=== PATIENT | female | born 1985 | race Caucasian/White ===

== ENCOUNTER 2024-01-16 21:17 | Emergency (ER) | payer OTHER, SELFPAY ==
--- NOTE | ~2024-01-16 | CT_ITS ---
EXAMINATION: CT soft tissue neck w con DATE: 01/16/2024 23:08 INDICATION: Left lower posterior dental abscess, facial swelling. TECHNIQUE: Computed tomography (CT) of the neck was performed with 75 mL Omnipaque-350 intravenous co ntrast. Automated exposure control and iterative reconstruction technique were employed. The dose-gillian gth product was 571.80 mGy-cm. COMPARISON: None FINDINGS: Soft tissue swelling adjacent to the left mandible without focal rim enhancing fluid collection. Mult ifocal dental caries. Multiple absent teeth. Periapical lucencies adjacent to the roots of multiple r ight-sided mandibular molars and the posterior most left maxillary molar. No evidence of maxillary or mandibular cortical breakthrough. The thyroid gland is unremarkable. The submandibular and paroti d glands are symmetric. Multiple enlarged left submandibular lymph nodes. The superior mediastinum is unremarkable. The airway is unremarkable. Parapharyngeal and pre-glottic fat planes are prese rved. Normal enhancing neck vessels. The orbits are unremarkable. Visualized sinuses and mastoid air cells are well aerated. Lung apices are clear. Normal regional bones. IMPRESSION: Soft tissue swelling over the left mandible. No abscess. No definite CT evidence of odontogenic infec tion. Submandibular lymphadenopathy. Multifocal periodontal disease. Multifocal dental caries. Reviewed, dictated and finalized at location [facility]. IMPRESSION: Soft tissue swelling over the left mandible. No abscess. No definite CT evidenc e of odontogenic infection. Submandibular lymphadenopathy. Multifocal periodontal disease. Multifocal dental caries.
[2024-01-16 21:17] VITALS: BP 134/74; PULSE 84; RESP 20; TEMP 36.3; O2SAT 98
--- NOTE | 2024-01-16 22:10 | ED.GENADULT ---
HPI - General Adult General Chief complaint: Dental/Oral Stated complaint: Facial Abscess Time Seen by Provider: 01/16/24 21:46 History of Present Illness HPI narrative: The patient is a 38-year-old woman who has had poor dentition and problems with the left lower posterior molar for more than a year. She has had several teeth extracted. More recently, 5 days ago, on 01/11/2024, the patient started to have pain in the left lower posterior molar tooth with initially mild swelling of the left jaw. She was seen in the emergency room the next day, 01/12/2024, at [facility], and was placed on amoxicillin b.i.d.. She has taken those antibiotics but still has pain in the left lower posterior molar but now has swelling that has worsened in the left face, with erythema in the left jaw inferiorly, for the last 2 days, since 01/14/2024. She has taken ibuprofen and Tylenol but with no relief of the pain. The swelling is worse and so has the erythema and pain. She does have dental follow-up scheduled for the next few weeks but she does not know the exact date. She also complains of feeling warm, with chills and diaphoresis. No chest pain or abdominal pain. No urinary symptoms. No rhinorrhea or nasal congestion. No significant past medical history. She does smoke cigarettes. She denies methamphetamine use. Last menstrual period 5 days ago. Related Data Home Medications Medication Instructions Recorded Confirmed amoxicillin 500 mg capsule 500 mg PO BID 01/16/24 01/16/24 Allergies Allergy/AdvReac Type Severity Reaction Status Date / Time No Known Allergies Allergy Verified 01/16/24 22:23 Review of Systems Review of Systems: All systems reviewed & are unremarkable except as noted in HPI and below Constitutional: Constitutional: Reports chills, Reports excessive sweating, Denies fatigue, Reports fever(s) (feels warm), Reports headache(s) (at left jaw area) and Denies weakness Eyes: Eyes: Denies change in vision and Denies photophobia ENT: Denies dysphagia, Denies dizziness, Denies headache(s), Denies lip swelling, Denies nasal congestion, Denies sore throat and Denies tongue swelling Comments: facial swelling on the left with erythema of the skin of the left jaw. Dental pain present. Cardiovascular: Cardiovascular: Denies chest pain, Denies syncope, Denies rapid heart rate and Denies dyspnea Respiratory: Respiratory: Denies cough, Denies dyspnea and Denies wheezing Gastrointestinal: Gastrointestinal: Denies abdominal pain, Denies constipation, Denies dysphagia, Denies diarrhea, Denies nausea and Denies vomiting Genitourinary: Genitourinary: Denies hematuria, Denies urinary frequency, Denies dysuria and Denies urinary urgency Musculoskeletal: Musculoskeletal: Denies back pain, Denies myalgias, Denies arthralgias, Denies joint swelling and Denies numbness Integumentary/Breasts: Skin/Breast: Denies pruritus, Reports erythema (at the left jaw) and Denies rash Neurologic: Denies confusion, Denies dizziness, Denies syncope, Denies headache(s), Denies focal weakness, Denies numbness and Denies weakness Psychiatric: Psychiatric: Denies anxiety and Denies confusion Endocrine: Endocrine: Denies excessive sweating and Denies fatigue Hematologic/Lymphatic: Hematologic/Lymphatic: Denies easy bleeding and Denies easy bruising Allergic/Immunologic: Allergic/Immunologic: Denies lip swelling, Denies tongue swelling and Denies wheezing Exam Const: General: healthy appearing, no acute distress, alert and well nourished Nutritional Appearance: well nourished Orientation/consciousness: patient oriented x3 Limitations: no limitations HENMT: Head: normal to inspection Ears: external ears normal Face/Nose/Sinus: normal facial exam Face and sinus: normal facial exam Mouth: Yes moist mucous membranes Teeth and gingiva: abnormal tooth and associated gingiva (significant dental caries, multiple pulled teeth,multiple melted-terrence
[2024-01-16 22:13] LABS: Basophils Absolute Auto 0.03 K/mm3 (0.00-0.10); Basophils Percent Auto 0.3 % (0.0-1.0); Eosinophils Absolute Auto 0.15 K/mm3 (0.02-0.50); Eosinophils Percent Auto 1.5 % (1.0-6.0); Hematocrit 37.2 % (35.0-49.0); Hemoglobin 12.4 g/dL (12.0-15.0); Immature Granulocyte Absolute 0.05 K/mm3 (0.00-0.00); Immature Granulocyte Percent A 0.5 % (0.0-0.0); Lymphocytes Absolute Auto 1.84 K/mm3 (1.10-4.50); Lymphocytes Percent Auto 18.8 % (18.0-42.0); Mean Corpuscular HGB Conc 33.3 g/dL (32-36); Mean Corpuscular Hemoglobin 30.8 pg (27.0-31.0); Mean Corpuscular Volume 92.5 fL (78.0-102.0); Mean Platelet Volume 11.4 fl (9.2-11.8); Monocytes Absolute Auto 0.59 K/mm3 (0.10-0.90); Neutrophils Absolute Auto 7.12 K/mm3 (1.70-7.20); Neutrophils Percent Auto 72.9 % (50.0-70.0); Platelet Count Result 197 K/mm3 (150-420); Red Blood Count 4.02 M/mm3 (4.20-5.40); Red Cell Distribution Width 13.3 % (11.6-14.4); White Blood Count 9.8 K/mm3 (4.8-10.8)
[2024-01-16 22:29] LABS: Alanine Aminotransferase 23 U/L (14-59); Albumin Level 3.2 g/dL (3.4-5.0); Alkaline Phosphatase 87 U/L (46-116); Anion Gap 11 mmol/L (4-12); Aspartate Amino Transferase 23 U/L (15-37); Bilirubin,Total 0.3 mg/dL (0.00-1.00); Blood Urea Nitrogen 9 mg/dL (7-18); Calcium 8.5 mg/dL (8.5-10.1); Carbon Dioxide 26 mmol/L (21-32); Chloride 101 mmol/L (98-108); Estimated Glomerular Filt Rate > 60; Glucose 107 mg/dL (70-99); Osmolality Calculated 284 mOsm/kg (285-295); Potassium 3.3 mmol/L (3.5-5.1); Sodium 138 mmol/L (136-145); Total Protein 7.3 g/dL (6.4-8.2)
[2024-01-16 22:31] LABS: CRP 11.3 mg/dL (0.0-0.9); SPREG INTERNAL CONTROL Positive; Serum Qual hCG Negative
[2024-01-16 22:34] LABS: Lactic Acid Reflex 1.2 mmol/L (0.4-2.0)
[2024-01-16] MEDS: KETOROLAC 30 MG/ML VIAL (*BKC) IV PUSH (22:41)
[2024-01-16] MEDS: AMPICILLIN SULB 3 GM/NS 100 ML 3 GM/100 ML VIAL IVPB (22:42)
[2024-01-16] MEDS: SODIUM CHLORIDE 0.9% IV 1,000 ML 999 ML IV CONT (22:43)
[2024-01-16 22:45] LABS: Appearance Urine Clear (Clear); Bilirubin Urine Negative (Negative); Blood Urine Negative (Negative); Color Urine Yellow (Yellow); Glucose Urine UA Negative (Negative); Ketones Urine Negative (Negative); Leukocyte Esterase Ur Negative LEU/UL (Negative); Nitrate Urine Negative (Negative); Protein Urine Negative (Negative); Specific Grav Ur 1.025 (1.010-1.020); pH Urine 6.5 (5.0-8.0)
[2024-01-16 22:49] LABS: Add Urine Microscopic? NO
[2024-01-16 22:52] LABS: Amphetamine Screen Urine Positive (Negative); Barbiturate Screen Urine Negative (Negative); Benzodiazepines Screen Urine Negative (Negative); Cannabinoid Screen Urine Positive (Negative); Cocaine Screen Urine Negative (Negative); Methadone Screen Urine Negative (Negative); Opiate Screen Urine Negative (Negative); Phencyclidine Screen Urine Negative (Negative)
[2024-01-16 23:19] LABS: Erythrocyte Sedimentation Rate 32 mm/hr (0-15)
[2024-01-17] MEDS: POTASSIUM CHLORIDE 20 MEQ ER TABLET 40 MEQ PO (03:19)
[2024-01-17] MEDS: MORPHINE SULFATE (*CRX) 4 MG/ML INJ IV PUSH (03:19)
[2024-01-17 03:49] VITALS: BP 123/74; PULSE 93; RESP 18; TEMP 36.6; O2SAT 98
--- NOTE | 2024-01-23 13:13 | PC.NURSE ---
FINAL BLOOD CULTURE RESULTS X2: NO GROWTH AFTER 5 DAYS
== END 2024-01-17 04:10 | disposition short-term general hospital (02) ==
PROVIDERS: Emergency Provider Emergency Medicine
DX: K04.7 Periapical abscess without sinus (principal); K02.9 Dental caries, unspecified; K05.10 Chronic gingivitis, plaque induced; L03.811 Cellulitis of head [any part, except face]; E87.6 Hypokalemia; F17.210 Nicotine dependence, cigarettes, uncomplicated
CPT/HCPCS: 36415; 70491; 80053; 80307; 81003; 83605; 84703; 85025; 85652; 86140; 87040; 96365; 96374; 96375; 99285; A9270; J0295; J1885; J2270; J7030; Q9967